=== PATIENT | male | born 1935 | race Caucasian/White ===

== ENCOUNTER 2017-05-01 13:56 | Inpatient (IN) | payer MEDICARE, BC ==
--- NOTE | ~2017-05-01 | CN ---
Consultation Report [facility] [address] [place] [address] NAME: CRISTINA BRAY : 37 STATUS : ADM Lance PAT#: [id number] AGE: 82 ADM/REG DATE : 05/01/17 MR#: [id number] REPORT SERV DATE: 05/02/17 DICTATED BY: BING LUU DATE: 05/02/17 REPORT STATUS : Draft TRANSCRIBED BY: MADDY DATE: 05/02/17 DATE OF CONSULTATION: ADDENDUM: Please be sure to send a copy to the attending neurologist, Dr. Edith Garcia. JOY/MADDY Bing Luu DNP, ACNP-BC / [id number] CC: Davis Zheng M.D.
--- NOTE | ~2017-05-01 | HP ---
History And Physical [place] [id number] [facility] [place]. [address] NAME: CRISTINA BRAY : 37 STATUS : ADM Lance PAT#: [id number] AGE: 82 ADM/REG DATE : 05/01/17 MR#: [id number] REPORT SERV DATE: 05/01/17 DICTATED BY: KAIN DAWSON DATE: 05/01/17 REPORT STATUS : Draft TRANSCRIBED BY: MODL DATE: 05/01/17 DATE OF ADMISSION: 05/01/2017 HISTORY OF PRESENT ILLNESS: The patient is a very pleasant, 82-year-old male, who presented to [facility] because of the right-sided leg weakness, which started two days ago on Sunday morning when he was about to go to a episcopal. He noticed that his right foot and right lower leg is weak and numb, and the weakness was progressing, and the knee also was giving away, and the patient did not feel any improvement in the symptoms over the last two days, so he presented to [facility] today. He denies any chest pain. No shortness of breath. No abdominal pain. He is complaining of left foot and left lower leg heaviness. No fever. No rash. No headache. No visual changes. No unilateral arm weakness. No other symptoms. No changes in his vision as well. No chest pain. No shortness of breath. REVIEW OF SYSTEMS: All 14-point review of systems done and negative except what is stated in the history of present illness. PAST MEDICAL HISTORY: Known for neuropathy with some numbness in his feet. He does not have diabetes and it is unclear etiology of his neuropathy. He denies any history of hypertension. No strokes in the past. No history of coronary artery disease. No history of an irregular heart beat. He has a history of prostate cancer, which was treated several years ago with radiation therapy. PAST SURGICAL HISTORY: Includes surgery for diverticulitis years ago. Part of the colon was removed. ALLERGIES: NO KNOWN DRUG ALLERGIES. SOCIAL HISTORY: No smoking. No alcohol. No recreational drug use. He lives with his who had a stroke and he takes care of his . FAMILY HISTORY: Positive for hypertension on both sides. HOME MEDICATIONS: Protonix 40 mg a day; Neurontin 300 mg a day, usually he takes twice a day; amitriptyline 25 mg a day; aspirin 81 mg a day; levothyroxine 25 mcg daily; and also, he takes afyn-qjj-eemxwnl ibuprofen, as needed Benadryl and Tylenol. PHYSICAL EXAMINATION: GENERAL: Well-nourished, well-developed male, not in acute distress. Resting quietly. VITAL SIGNS: Blood pressure 143/86, temperature 97.3, heart rate 97, respiratory rate 18, and oxygen saturation 97% on room air. HEENT: Head atraumatic, normocephalic. Conjunctivae clear. Pupils are equal and reactive to light and accommodation. Extraocular muscles are intact. NECK: Supple. Trachea is midline. No supraclavicular or cervical lymphadenopathy. LUNGS: Clear to auscultation bilaterally. Normal respiratory effort. History And Physical [address] [address] NAME: CRISTINA BRAY : 37 STATUS : ADM Lance PAT#: [id number] AGE: 82 ADM/REG DATE : 05/01/17 MR#: [id number] REPORT SERV DATE: 05/01/17 DICTATED BY: KAIN DAWSON DATE: 05/01/17 REPORT STATUS : Draft TRANSCRIBED BY: MADDY DATE: 05/01/17 CARDIOVASCULAR: Regular rate and rhythm. Point of maximal impulse not displaced. ABDOMEN: Soft, nontender, nondistended. Positive normoactive bowel sounds. No organomegaly. EXTREMITIES: No clubbing, cyanosis, or edema. SKIN: Normal color and turgor. NEUROLOGIC: He is awake, alert, oriented in time, place, and person. Muscle strength is 5/5 on the upper and lower extremity except on the right leg the muscle strength is 4+/5, on the left leg 5/5. Sensations are symmetric and intact on both upper and lower extremities. Cranial nerves 3 to 12 are grossly intact. Deep tendon reflexes are 2/4 bilaterally on upper and lower extremities. PSYCHIATRIC: Normal mood and affect. He is awake, alert, and oriented in time, place, and person. LABORATORY RESULTS: Sodium 139, potassium 3.7, chloride 104, carbon dioxide 29, BUN 18, creatinine 0.97, and blood sugar 97. His white count is 5, hemoglobin 13.9, hematocrit 40, MCV 104.2, platelet count 142. CT of the brain without contrast done today in the emergency room no acute infarction, no hemorrhage, moderate atrophy with chronic white matter changes, and his EKG showed normal sinus rhythm with a rate of 82, incomplete right bundle branch block. ASSESSMENT AND PLAN: This is a very pleasant, 82-year-old male, who presented with right leg weakness and giving up right knee, as well as with some numbness, which could represent TIA versus CVA. We will put the patient under observation status on cardiac telemetry. We will check his fasting lipid profile as well as TSH with elevated MCV. We will check serum B12 and folic acid level, and we will put him on aspirin 325 mg a day, as well as we will check MRI/MRA of the head and neck, bilateral carotid ultrasound, and echocardiogram, and we will consult Neurology. We will also check the patient's hemoglobin A1c. We will order x-ray on the right knee. Everything was discussed with the patient. MG/MODMariaelena Kain Dawson M.D. / [id number] CC: Davis Zheng M.D.
--- NOTE | ~2017-05-01 | CN ---
Consultation Report [facility] [address] [place]. [address] NAME: CRISTINA BRAY : 37 STATUS : ADM Lance PAT#: [id number] AGE: 82 ADM/REG DATE : 05/01/17 MR#: [id number] REPORT SERV DATE: 05/02/17 DICTATED BY: BING LUU DATE: 05/02/17 REPORT STATUS : Draft TRANSCRIBED BY: MODMariaelena DATE: 05/02/17 NEUROLOGY CONSULTATION DATE OF CONSULTATION: 05/02/2017 REASON FOR CONSULTATION: Right leg weakness. HOSPITALIST: Robyn Locke M.D. HISTORY OF PRESENT ILLNESS: The patient is an 82-year-old male, who had a sudden onset of right leg weakness. This occurred on Sunday when he was getting ready to go to religious. He also mentioned that his right hand was clumsy. He had a hard time signing papers. He denied any dysarthria. He denied any visual changes, but did mention that he had some imbalance. He has struggled with imbalance for quite some time. He has been diagnosed with peripheral neuropathy. His neuropathy mainly affects the top of both feet. He also has some pain and discomfort in his feet. He has been on gabapentin for a long period of time and states that this helps him minimally. The patient came to the hospital because he was concerned he may have had a stroke-type event. PAST MEDICAL HISTORY: Peripheral neuropathy, prostate cancer, glaucoma, hypothyroidism, and GERD. PAST SURGICAL HISTORY: Diverticulitis surgery with colon resection. MEDICATIONS: Home medication list includes Tylenol p.r.n.; Elavil 25 mg at bedtime; aspirin 81 mg at bedtime; vitamin B12, 1000 mcg daily; Benadryl p.r.n.; Neurontin 300 mg t.i.d.; Advil p.r.n.; Xalatan ophthalmic solution one drop both eyes daily; Synthroid 25 mcg at bedtime; and timolol one drop left eye at bedtime. ALLERGIES: NONE. SOCIAL HISTORY: The patient is . He does not smoke, drink alcohol, or use illicits. FAMILY HISTORY: His mother at 75, she had back problems, cause of unknown. Father at age 90 from congestive heart failure, he had valvular problems. REVIEW OF SYSTEMS: Please refer to HPI for pertinent positives. PHYSICAL EXAMINATION: VITAL SIGNS: The patient is an 82-year-old male, who stands 177.8 cm, he weighs 85.47 kg. He is slightly febrile with a temperature of 99 degrees, heart rate 94, respiratory rate 18, O2 sats on room air 96%, blood pressure 127/82. NEURO: He is alert. He is oriented x4. Pleasant. Communicates appropriately. Pupils are Consultation Report [address] [place]. [address] NAME: CRISTINA BRAY : 39 STATUS : ADM Lance PAT#: [id number] AGE: 82 ADM/REG DATE : 05/01/17 MR#: [id number] REPORT SERV DATE: 05/02/17 DICTATED BY: BING LUU DATE: 05/02/17 REPORT STATUS : Draft TRANSCRIBED BY: MADDY DATE: 05/02/17 3 mm, PERRLA. Cranial nerves 2 through 12 are intact. Vision via confrontation full in both quinones. Puljzf-ww-qsjl and rpul-ex-varz, no ataxia. There is no pronator drift. Upper extremity strength is a 5/5. Upper DTRs 1+ bilaterally. No reported sensory deficits. In the lower extremities, strength is a 2/5 on the right and a 5/5 on the left. He does have decreased sensation from the toes to mid calf on the left and toes to below the knee on the right. He has diminished vibratory and temperature sensation in the same distribution. Patellar reflexes are 2+ bilaterally. Downgoing toes on the left, upgoing toes on the right. The patient cannot ambulate on his own. He is a total assist, so he did not get up. NECK: No carotid bruits, JVD, or thyromegaly. CHEST: Lung sounds are clear. CARDIAC: Regular rate and rhythm. LABORATORY DATA: CBC is normal. BMP normal. Cholesterol values were elevated, triglycerides 187, HDL 28. CT of the brain, no acute changes. Carotid duplex study, less than 50% stenosis, category 1 disease. MRI of the brain showed an acute lacunar infarct in the left vazquez radiata. MRA of the head and neck showed high-grade stenosis in a short segment of the right vertebral artery. NIH Stroke Scale is 2. ASSESSMENT/PLAN: 1. Acute lacunar stroke in the left vazquez radiata. 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 He will be placed on Lipitor 40 mg p.o. q.h.s. PT and OT will be consulted. Case Management will be consulted for rehab. The patient is not able to ambulate well on his own. 2. Peripheral neuropathy, etiology unknown. The patient's gabapentin will be increased to [address] Shabana Garcia, the attending neurologist, is aware of the patient's situation and plan of care. Thank you again for including us in consultation, we will follow with you. JOY/MADDY Bing Luu DNP, ACNP-BC / [id number] CC: Davis Zheng M.D.
--- NOTE | ~2017-05-01 | DS ---
Discharge Summary [place] [id number] [facility] [place]. [address] NAME: CRISTINA BRAY : 37 STATUS : DIS IN PAT#: [id number] AGE: 82 ADM/REG DATE : 05/01/17 MR#: [id number] REPORT SERV DATE: 05/03/17 DICTATED BY: KAIN DAWSON DATE: 05/03/17 REPORT STATUS : Draft TRANSCRIBED BY: MODMariaelena DATE: 05/03/17 ADMISSION DATE: 05/01/2017 DISCHARGE DATE: 05/03/2017 DIAGNOSES ON ADMISSION: 1. Right leg weakness, possible transient ischemic attack versus cerebrovascular accident. 2. Hypertension, controlled. DIAGNOSES ON DISCHARGE: 1. Small lacunar cerebrovascular accident with right lower extremity weakness and mild right hand apraxia, currently on Lipitor, aspirin and Plavix. 2. Blood pressure currently in normal range. 3. Hypothyroidism, controlled. 4. History of neuropathy, stable. CONSULTANTS ON THE CASE: Neurology nurse practitioner, Bing England with neurologist, Dr. Shabana Moreno. IMAGING STUDIES DONE DURING THIS HOSPITALIZATION: CT of the brain without contrast done on 05/01/2017, no acute infarction or hemorrhage, moderate atrophy and chronic white matter gliosis. MRI of the brain on 05/02/2017 showed acute lacunar infarction in the left vazquez radiata and extending into the posterior limb of left internal capsule. No mass effect or hemorrhage. The size of the infarction 1 cm. Chronic small vessel ischemic changes in the supratentorial white matter and old lacunar infarction in the cecilia. 50% stenosis on the right supraclinoid ICA. Tandem stenosis of the right TRANSFORMER TESTER. Left ICA origin 60% stenosis. High-grade stenosis or short-segment occlusion of the nondominant right vertebral artery, just proximal to vertebrobasilar confluence. Carotid ultrasound done on 05/02/2017 showed findings compatible with category 1 disease, less than 50% stenosis involving the cervical portions of the right and left internal carotid arteries. The cervical portions of the vertebral artery are patent with antegrade flow. Echocardiography done on 05/02/2017 showed normal left ventricular size and low normal left ventricular systolic function. Ejection fraction 50%. Mild left ventricular diastolic dysfunction. Normal right ventricular size and systolic function. No significant valvular disease. HISTORY OF PRESENT ILLNESS: Briefly, this is an extremely pleasant 82-year-old male, who was admitted by ia on 05/01 with complaints of right-sided leg weakness and also numbness. He was unable to stand on his leg. This patient was admitted with diagnosis of possible TIA versus cerebrovascular accident. The patient underwent MRI of the brain, and the results showed small stroke in the vazquez radiata, 1 cm in size. The patient was doing well during Discharge Summary [address] [place]. [address] NAME: CRISTINA BRAY : 39 STATUS : DIS IN PAT#: [id number] AGE: 82 ADM/REG DATE : 05/01/17 MR#: [id number] REPORT SERV DATE: 05/03/17 DICTATED BY: KAIN DAWSON DATE: 05/03/17 REPORT STATUS : Draft TRANSCRIBED BY: MADDY DATE: 05/03/17 hospitalization. He was evaluated by neurologist, Dr. Moreno, and her nurse practitioner, Bing England. The patient was recommended to be on aspirin 325 mg daily, and Plavix was added to his aspirin because the patient had also intracranial stenosis and vertebral artery stenosis. For this reason, Plavix was ordered and recommended as well as he was recommended to avoid nonsteroidal anti-inflammatories because he is currently on aspirin and Plavix. He also was recommended to be on Lipitor. The patient's total cholesterol was 129, HDL was 28, LDL was 64, triglycerides 187. His vitamin B12 level was 997. His TSH was 5.1. The patient's blood pressure was in normal range after he had the stroke. His blood pressure was 138/81, 131/78, 135/79. We recommend to decrease the dose of his Neurontin to 200 mg twice daily to avoid hypotension after stroke. DISCHARGE MEDICATIONS: Elavil 25 mg at bedtime; aspirin 325 mg daily; Lipitor 40 mg daily; Plavix 75 mg daily; vitamin B12, 1000 mcg daily; Neurontin 200 mg twice a day; Xalatan eye drops daily; levothyroxine 25 mcg daily; multivitamins daily; Protonix 40 mg daily; Tylenol 1000 mg daily p.r.n. for pain; Benadryl 25 mg daily p.o. at bedtime as needed; timolol eye drops daily. The patient was discharged in stable condition to inpatient rehab to SNF. I spent 45 minutes on discharge. Everything was discussed with the patient and his daughter. DICTATED BY: Davis Zheng/MADDY Kain Dawson M.D. / [id number] CC: Davis Zheng M.D. [facility]
[2017-05-01 16:36] LABS: BASOPHILS 0.2 %; BASOPHILS ABSOLUTE 0.01 10/3/uL (0.0-0.16); EOSINOPHILS 1.6 %; EOSINOPHILS ABSOLUTE 0.08 10/3/uL (0.0-0.53); ER CBC TAT 0 Hrs 02 Mins; HEMOGLOBIN 13.9 g/dL (13.6-17.8); IMMATURE GRANULOCYTES 0.6 %; IMMATURE GRANULOCYTES ABSOLUTE 0.03 10/3/uL (0.0-0.11); LYMPHOCYTES 52.2 %; MEAN CORPUS HGB CONC 34.8 g/dL (32.0-36.0); MEAN CORPUSCULAR HEMOGLOB 36.2 pg (26.0-34.0); MEAN PLATELET VOLUME 8.8 fL (9.2-13.0); MONOCYTES 11.8 %; MONOCYTES ABSOLUTE 0.59 10/3/uL (0.21-1.20); NEUTROPHILS 33.6 %; NEUTROPHILS ABSOLUTE 1.67 10/3/uL (2.02-8.40); PLATELET COUNT 142 10/3/uL (150-400); RBC DISTRIBUTION WIDTH 13.5 % (12.0-16.0); RED CELL COUNT 3.84 10/6/uL (4.7-6.1)
[2017-05-01 16:37] LABS: MANUAL DIFF NO %; MEAN CORPUSCULAR VOLUME 104.2 fL (80-100)
[2017-05-01 16:47] LABS: PARTIAL THROMBO TIME 30.4 SEC (22.5-37.2); PROTIME (NOT ORD) 13.3 SEC (12.0-14.5)
[2017-05-01 16:49] LABS: BUN (BLOOD UREA NITROGEN) 18 MG/DL (6-23); CALCIUM, SERUM 9.3 MG/DL (8.5-10.4); CHLORIDE, SERUM 104 MMOL/L (96-112); CO2 (CARBON DIOXIDE) 29 MMOL/L (24-34); CREATININE 0.97 MG/DL (0.70-1.30); GFR AFRICAN AMERICAN 85 ML/MIN (>=60); GFR NON AFRICAN AMERICAN 73 ML/MIN (>=60); GLUCOSE, SERUM 97 MG/DL (60-99); POTASSIUM, SERUM 3.7 MMOL/L (3.5-5.3); SODIUM, SERUM 139 MMOL/L (135-148)
[2017-05-01] MEDS ORDERED: PROTONIX PO (16:49)
[2017-05-01] MEDS ORDERED: HALF81 PO (16:49)
[2017-05-01] MEDS ORDERED: AMIT25 PO (16:49)
[2017-05-01] MEDS ORDERED: SYN.025B PO (16:49)
[2017-05-01] MEDS ORDERED: NEUR300 PO (16:49)
[2017-05-01] MEDS ORDERED: BEN25 PO (16:50)
[2017-05-01] MEDS ORDERED: ACET500CAP PO (16:50)
[2017-05-01] MEDS ORDERED: ADVIL PO (16:51)
[2017-05-01] MEDS ORDERED: CYANO1000T PO (16:51)
[2017-05-01] MEDS ORDERED: MULTIVITAMI1 PO (16:51)
[2017-05-01] MEDS ORDERED: XALAT OPH (16:51)
[2017-05-01] MEDS ORDERED: TIMOLOL MAL0.5 % OPH (16:52)
[2017-05-02 06:51] LABS: CHOL/HDL RATIO(NOT ORDER) 4.6 (0-5); ULTRASENSITIVE TSH 5.19 MCIU/ML (0.358-3.740)
[2017-05-02 06:52] LABS: FOLATE 27.6 NG/ML (>5.2)
[2017-05-03 06:32] LABS: BUN (BLOOD UREA NITROGEN) 18 MG/DL (6-23); CALCIUM, SERUM 9.5 MG/DL (8.5-10.4); CHLORIDE, SERUM 104 MMOL/L (96-112); CO2 (CARBON DIOXIDE) 29 MMOL/L (24-34); CREATININE 1.02 MG/DL (0.70-1.30); GFR AFRICAN AMERICAN 80 ML/MIN (>=60); GFR NON AFRICAN AMERICAN 69 ML/MIN (>=60); GLUCOSE, SERUM 103 MG/DL (60-99); POTASSIUM, SERUM 3.9 MMOL/L (3.5-5.3); SODIUM, SERUM 139 MMOL/L (135-148)
== END 2017-05-03 14:21 | DRG 65 ==
LOC: ER 13:56 → 1SO 17:24
PROVIDERS: Emergency Medicine; Hospitalist
DX: I63.211 Cerebral infarction due to unspecified occlusion or stenosis of right vertebral artery (principal); G81.91 Hemiplegia, unspecified affecting right dominant side; G62.9 Polyneuropathy, unspecified; E03.9 Hypothyroidism, unspecified; H40.9 Unspecified glaucoma; R29.702 NIHSS score 2; K21.9 Gastro-esophageal reflux disease without esophagitis; Z79.82 Long term (current) use of aspirin; Z85.46 Personal history of malignant neoplasm of prostate; Z90.49 Acquired absence of other specified parts of digestive tract
CPT/HCPCS: 70450; 70544; 70548; 70553; 73560-RT; 80048; 80061; 82607; 82746; 83036; 84443; 85025; 85610; 85730; 93005; 93306; 93880; 97161-GP; 97166-GO; 99285; A9270-GY; A9577; G8978-CK-GP; G8979-CH-GP; G8987-CK-GO; G8988-CJ-GO; J2405